=== PATIENT | male | born 1965 | race Caucasian/White ===

== ENCOUNTER 2020-12-28 09:54 | Outpatient (CLI) | payer OTHER | END 2020-12-28 09:55 | disposition home or self-care (01) | LOC: CSHULT 09:54 | PROVIDERS: ATTEND Family Medicine | DX: Z87.442 Personal history of urinary calculi (principal) | CPT/HCPCS: 76770 ==

== ENCOUNTER 2021-03-17 13:39 | Outpatient (CLI) | payer OTHER | END 2021-03-17 13:40 | disposition home or self-care (01) | LOC: CSHCT 13:39 | PROVIDERS: ATTEND Urology | DX: N20.0 Calculus of kidney (principal); K76.0 Fatty (change of) liver, not elsewhere classified | CPT/HCPCS: 74176 ==

== ENCOUNTER 2021-04-27 09:31 | Outpatient (CLI) | payer OTHER | END 2021-04-27 09:32 | disposition home or self-care (01) | LOC: CSHCT 09:31 | PROVIDERS: ATTEND Specialist | DX: E21.3 Hyperparathyroidism, unspecified (principal) | CPT/HCPCS: 70492 ==